=== PATIENT | female | born 1945 | race Caucasian/White ===

== ENCOUNTER → 2022-01-26 13:49 | Outpatient (CLI) | payer MEDICARE, SELFPAY ==
--- NOTE | ~2022-01-26 | MR_ITS ---
EXAMINATION: MR brain/brain stem wo/w con DATE: 01/26/2022 14:44 INDICATION: Memory loss. TECHNIQUE: Magnetic resonance imaging (MRI) of the brain and brainstem was performed without and with 12 mL MultiHance intravenous contrast. COMPARISON: Brain MRI 08/08/2009 FINDINGS: There is an old lacunar infarct in the right basal ganglia and adjacent white matter. There are scattered areas of nonspecific increased T2-weighted signal intensity in the cerebral white nesha er, bilateral basal ganglia, and henny. There is no intracranial hemorrhage, acute infarction, or abno rmal intracranial mass lesion. The ventricles are normal in size. The orbits are normal. There is mil d mucosal thickening in the ethmoid sinuses. The mastoid air cells are normal. IMPRESSION: 1. Old lacunar infarct in the right basal ganglia and adjacent white matter. 2. Mild nonspecific cerebral white matter disease and disease of the bilateral basal ganglia and henny , which likely represents chronic small vessel ischemic disease. Reviewed, dictated and finalized at location A. IMPRESSION: 1. Old lacunar infarct in the right basal ganglia and adjacent white matter. 2. Mild nonspecific cerebral white matter disease and disease of the bilateral basal ganglia and henny, which likely represents chronic small vessel ischemic d isease.
== END ==
PROVIDERS: PCP Physician Assistant; Visit Provider Physician Assistant
DX: R41.3 Other amnesia (principal); R93.0 Abnormal findings on diagnostic imaging of skull and head, not elsewhere classified
CPT/HCPCS: 70553; A9577

== ENCOUNTER 2022-10-30 23:03 | Outpatient (NON) | payer MEDICARE, SELFPAY | END 2022-10-30 23:04 | disposition home or self-care (01) | PROVIDERS: PCP Family Medicine; Visit Provider Family Medicine | DX: N39.0 Urinary tract infection, site not specified (principal) | CPT/HCPCS: 87086; 87088 ==

== ENCOUNTER 2022-11-19 01:46 | Day surgery (SDC) | payer MEDICARE, SELFPAY ==
[2022-11-09 13:08] VITALS: BMI 24.0
[2022-11-19 11:41] VITALS: BP 120/77; PULSE 106; RESP 18; TEMP 36.4; O2SAT 100
[2022-11-19] MEDS: LACTATED RINGERS 1,000 ML 150 ML IV CONT (11:50)
--- NOTE | 2022-11-19 12:46 | PM.HPGS ---
History of Present Illness History of Present Illness Consent: Risks, benefits, and alternatives have been discussed and questions answered. Patient agrees to proceed with procedure. Chief complaint: GERD, Abnormal Weightloss Narrative: Chelsea Martinez is a 77 year old female referred for investigation of persistent dyspepsia. She has almost constant discomfort in her stomach as though she is hungry. In fact she feels better after she eats. She denies heartburn dysphagia although she 1st her symptoms as acid reflux. She is taking dexlansoprazole 60 mg every day. Review of Systems Review of Systems: All systems reviewed & are unremarkable except as noted in HPI and below PMFSH Past Medical History Medical History Mild Alzheimer's dementia (~05/04/22) Surgical History Surgical History H/O: section (~1977) History of knee replacement (~04/2015) History of repair of rotator cuff (~2004) Family History Family History Father Family history of hypercholesterolemia Hypertension Asthma Family history of cardiovascular disease Cerebrovascular accident Mother Hypertension Family history of Alzheimer's disease Grandparent Family history of malignant neoplasm of breast Social History Social History Smoking status: Former smoker Tobacco type: cigarettes Alcohol intake: current Substance use: never Substance use type: does not use Lack of Transportation: No Lack of Food: Never True Current Housing: I Have Housing Concerned About Future Housing: No Difficulty Paying Gas/Electric Bills: No Difficulty Paying for Meds: No Currently Unemployed: No Education: Associate Degree Difficulty w/ Childcare or Family Care: No Living arrangements: alone Occupation/Education: retired Gender identity (if verbalized by the patient): Female Sexual Orientation (if Verbalized by the Patient): Straight or Heterosexual Spiritual care concerns: No Meds Home Medications and Allergies Home Medications Medication Instructions Recorded Confirmed Type lisinopril 10 mg tablet 5 mg PO DAILY #90 tabs 02/12/22 11/13/22 Rx memantine 5 mg tablet 5 mg PO QAM #90 tabs 06/04/22 11/13/22 Rx dexlansoprazole 60 mg 60 mg PO DAILY #90 caps 08/23/22 11/13/22 Rx capsule,biphase delayed release (Dexilant) amlodipine 5 mg tablet 5 mg PO DAILY #90 tabs 10/18/22 11/13/22 Rx levothyroxine 75 mcg tablet 75 mcg PO DAILY #90 tabs 10/18/22 11/13/22 Rx atorvastatin 40 mg tablet 40 mg PO DAILY #90 tabs 10/19/22 11/13/22 Rx nitrofurantoin macrocrystal 100 mg 100 mg PO Q12H #10 caps 10/30/22 10/30/22 Rx capsule clopidogrel 75 mg tablet 75 mg PO DAILY #90 tabs 11/05/22 11/13/22 Rx Allergies Allergy/AdvReac Type Severity Reaction Status Date / Time Penicillins Allergy Mild Rash Verified 11/19/22 11:40 Sulfa (Sulfonamide Allergy Unknown Skin Verified 11/19/22 11:40 Antibiotics) Reaction Vital Signs Vital Signs - 24 hr 11/19/22 11:41 Temperature 36.4 C Pulse Rate 106 H Respiratory Rate 18 Blood Pressure 120/77 Pulse Oximetry 100 Oxygen Delivery Room Air Exam Const: General: alert Orientation/consciousness: patient oriented x3 Resp: Auscultation: clear to auscultation bilaterally Cardio: Rhythm: regular rhythm GI: GI Palp: Yes Soft to palpation and No Tenderness to palpation present (GI) Neuro: General: patient oriented x3 Assessment and Plan Assessment and plan (1) Epigastric pain: Code(s): R10.13 - Epigastric pain Status: Acute Assessment and Plan: EGD with possible biopsy or dilatation or cautery.
--- NOTE | 2022-11-19 13:04 | WPDANESEPPF ---
Anes - Initial Pre Proc Eval Procedure: Operation Date: 11/19/22 13:00 Proposed Procedures p Esophagogastroduodenoscopy - Steve Diaz MD Date/Time: 11/19/22 13:04 Surgeon: Steve Diaz MD Pre Op Diagnosis: GERD, Abnormal Weightloss Patient Data Age: 77 Gender: F Height: 1.63 m Weight: 62.6 kg Last Vital Signs Temp 36.4 C 11/19/22 11:41 Pulse 106 H 11/19/22 11:41 Resp 18 11/19/22 11:41 BP 120/77 11/19/22 11:41 Pulse Ox 100 11/19/22 11:41 O2 Del Method Room Air 11/19/22 11:41 Allergies Allergy/AdvReac Type Severity Reaction Status Date / Time Penicillins Allergy Mild Rash Verified 11/19/22 11:40 Sulfa (Sulfonamide Allergy Unknown Skin Verified 11/19/22 11:40 Antibiotics) Reaction Home Medications Medication Instructions Recorded Confirmed Type lisinopril 10 mg tablet 5 mg PO DAILY #90 tabs 02/12/22 11/13/22 Rx memantine 5 mg tablet 5 mg PO QAM #90 tabs 06/04/22 11/13/22 Rx dexlansoprazole 60 mg 60 mg PO DAILY #90 caps 08/23/22 11/13/22 Rx capsule,biphase delayed release (Dexilant) amlodipine 5 mg tablet 5 mg PO DAILY #90 tabs 10/18/22 11/13/22 Rx levothyroxine 75 mcg tablet 75 mcg PO DAILY #90 tabs 10/18/22 11/13/22 Rx atorvastatin 40 mg tablet 40 mg PO DAILY #90 tabs 10/19/22 11/13/22 Rx nitrofurantoin macrocrystal 100 mg 100 mg PO Q12H #10 caps 10/30/22 10/30/22 Rx capsule clopidogrel 75 mg tablet 75 mg PO DAILY #90 tabs 11/05/22 11/13/22 Rx Patient hx anesthesia problems: none Family hx anesthesia problems: none Results Review: All pre-operative results and documents have been reviewed as part of the pre-operative evaluation. [facility] Past Medical History Medical History Mild Alzheimer's dementia (~05/04/22) Surgical History Surgical History H/O: section (~1977) History of knee replacement (~04/2015) History of repair of rotator cuff (~2004) Family History Family History Father Family history of hypercholesterolemia Hypertension Asthma Family history of cardiovascular disease Cerebrovascular accident Mother Hypertension Family history of Alzheimer's disease Grandparent Family history of malignant neoplasm of breast Social History Social History Smoking status: Former smoker Tobacco type: cigarettes Alcohol intake: current Substance use: never Substance use type: does not use Lack of Transportation: No Lack of Food: Never True Current Housing: I Have Housing Concerned About Future Housing: No Difficulty Paying Gas/Electric Bills: No Difficulty Paying for Meds: No Currently Unemployed: No Education: Associate Degree Difficulty w/ Childcare or Family Care: No Living arrangements: alone Occupation/Education: retired Gender identity (if verbalized by the patient): Female Sexual Orientation (if Verbalized by the Patient): Straight or Heterosexual Spiritual care concerns: No Anes - Eval Final PreProcedure Day of Procedure 11/19/22 13:04 Patient weight: normal Lungs: clear to auscultation Airway: Mallampati scale class II Neurological: other (alert) Last oral intake: >/= 8 hours ASA classification: IV Emergent: no Anesthetic plan: proceed Anesthesia type and monitoring: general GIVS and standard monitoring Results Review: All pre-operative results and documents have been reviewed as part of the pre-operative evaluation. Informed Consent: The patient's anesthetic plan and its attendant risks and benefits were discussed with the patient/family/POA. Questions were solicited and answers provided to the satisfaction of the patient/family/POA.
[2022-11-19 13:35] VITALS: BP 100/53; PULSE 67; RESP 20; O2SAT 100
[2022-11-19 13:45] VITALS: BP 98/59; PULSE 62; RESP 20; O2SAT 100
[2022-11-19 13:55] VITALS: BP 141/75; PULSE 58; RESP 20; O2SAT 100
== END 2022-11-19 14:10 | disposition home or self-care (01) ==
PROVIDERS: PCP Family Medicine; Visit Provider Internal Medicine Gastroenterology
PROC: 0DJ08ZZ Inspection of Upper Intestinal Tract, Via Natural or Artificial Opening Endoscopic (ICD-10-PCS; CPT 43235; principal; 2022-11-19 13:00)
DX: K21.9 Gastro-esophageal reflux disease without esophagitis (principal); G30.9 Alzheimer's disease, unspecified; F02.A0 Dementia in other diseases classified elsewhere, mild, without behavioral disturbance, psychotic disturbance, mood disturbance, and anxiety; Z79.02 Long term (current) use of antithrombotics/antiplatelets; Z87.891 Personal history of nicotine dependence
CPT/HCPCS: 43239; 87081; 88305; J2704; J7120

== ENCOUNTER 2023-12-05 07:09 | Outpatient (RCR) | payer MEDICARE, SELFPAY ==
--- NOTE | 2023-12-05 08:11 | PTOPEVAL1 ---
Assessment and note entered by Star Navas Evaluation Information Assessment Status Evaluation Diagnosis unsteadiness, left knee pain ICD-10 Condition Codes (PT) Pain in low back M54.50 Onset 12/04/22 Subjective Information Pt. reports that in the past year she has began to notice less control regarding her mobility. She reports that she has been dealing with on/off back pain in the past several months. She states that she has fallen twice in the past year. She denies any knee pain at this time. She reports that she is inactive for the most part and sits most of the day. She states that she lives alone, and still does light house cleaning. She reports that she no longer drives, and family helps with getting her into the community. She can stand for about 10-15 minutes before she has to sit due to back pain. she describes most of her back pain on the left side. She states that she has had no recent x-ray or MRI. She states she has no problem with sleeping at night. She states that she has been starting to use a cane in the past month due to her increasing pain. She reports that her goal is to decrease her low back and left buttock pain. Reported Pain Level Pain Score 5: Self Report Assessment PT Clinical Summary Pt. is a 78 year old female who enters the clinic with developed unsteadiness, l.e. pain and back pain. she presents with impaired gait, impaired l .e. strength, back pain, impaired balance with high fall risk, and functional decline. Continued skilled PT is indicated in order to improve these areas to assist with improved safety and efficiency with IADL's. Plan of Care Interventions Electrical Stimulation,Gait Training,Hot Pack/Cold Pack,Manual Therapy,Neuro Re-education,Patient/ Caregiver Educati,Therapeutic Activities, Therapeutic Exercise PT Services Indicated Yes Treatment Frequency and 2x/week x 10 visits Duration These treatments will address the objective and functional deficits as defined above. The patient will be advanced safely and appropriately in order for the patient to progress towards his/her prior level of function. Additional exercises will be introduced and as well as a comprehensive home exercise program upon discharge, if needed, ?to ensure carryover of functional gains achieved in the clinic. This treatment plan has been reviewed and agreement upon by the patient.
--- NOTE | 2023-12-05 08:20 | OPREHPOC ---
Outpatient Therapy Plan of Care This is a Multidisciplinary Plan of Care that may contain components documented by all disciplines (PT, OT, and ST.) PT Problem 1 PT Problem #1 Knowledge Deficit PT Goal 1 Goal / Goal Update Pt. will be independent with a HEP focused on flexibility, core stability and trunk mobility. Target Visit 2 PT Problem 2 PT Problem #2 Pain PT Goal 1 Goal / Goal Update Pt. will report pain levels at 2/10 at worst with prolonged standing activities of 30 minutes or greater. Target Visit 10 PT Problem 3 PT Problem #3 Impaired Balance PT Goal 1 Goal / Goal Update Pt. will improve her tinetti score to 24 or greater indicating lower fall risk. Target Visit 10 PT Problem 4 PT Problem #4 Impaired Gait PT Goal 1 Goal / Goal Update Pt. will demonstrate safe use of standard cane on right without verbal cues over level surface Pt. will complete the 6 minute walk test over a distance of 600' or greater with no episodes of toe drag on the left and 100% accuracy with right swing extremity passing the stance phase extremity . Target Visit 10 PT Problem 5 PT Problem #5 Impaired Functional Mobil PT Goal 1 Goal / Goal Update Pt. will present with less than 40% limitation on the LEFS indicating significant functional improvement. Target Visit 10
--- NOTE | 2023-12-25 12:52 | PCPTNOTE ---
Pt no showed visit today. Called and LM of next day and time.
--- NOTE | 2023-12-26 11:35 | PCPTNOTE ---
Mrs. Martinez's son called and stated that he would not be able to get his mother to her appointments and was going to contact her doctor regarding home health. She only attended the initial evaluation. Refer to the initial evaluation for discharge status. She will be discharged from our care at this time. Thank you for the referral of this patient. Star Navas, MPT
== END 2023-12-26 13:06 | disposition home or self-care (01) ==
LOC: ANHPT 07:09
PROVIDERS: PCP Family Medicine; Visit Provider Family Medicine
DX: M25.562 Pain in left knee (principal); R26.81 Unsteadiness on feet
CPT/HCPCS: 97110; 97162

== ENCOUNTER 2025-02-05 20:28 | Emergency (ER) | payer MEDICARE, SELFPAY ==
--- NOTE | ~2025-02-05 | CT_ITS ---
CT cervical spine wo con HISTORY: fall, hit head COMPARISON: None TECHNIQUE: Axial images of the cervical spine were obtained. Multiplanar reconstruction in the coronal, sagittal and axial reformats to evaluate for cervical fracture. FINDINGS: The images demonstrate no acute fracture or paravertebral soft tissue swelling. Multilevel degenerative changes with disc space narrowing and endplate sclerosis with uncovertebral hypertrophy and facet joint arthropathy. The visualized aspect of the upper lungs are clear. IMPRESSION: No acute fracture or subluxation. All CT scans at this facility are performed using low dose modulation techniques as appropriate to perform exam including the following: automated exposure control; adjustment of the mA and/or kV according to patient size (this includes techniques or standardized protocols for targeted exams where does is matched to indication/reason for exam; i.e. extremities or head); use of iterative reconstruction technique). Reviewed, dictated and finalized at location S. IMPRESSION: No acute fracture or subluxation. All CT scans at this facility are performed using low dose modulation techniqu es as appropriate to perform exam including the following: automated exposure c ontrol; adjustment of the mA and/or kV according to patient size (this includes techniques or standardized protocols for targeted exams where does is matched to indication/reason for exam; i.e. extremities or head); use of iterative jen nstruction technique).
--- NOTE | ~2025-02-05 | XR_ITS ---
XR chest 1V portable INDICATION:fall . REFERENCE: None FINDINGS: A single AP of the chest demonstrates normal heart size. The lungs are clear. There is no evidence of pneumothorax or pleural effusion. IMPRESSION: No acute pulmonary findings. Reviewed, dictated and finalized at location S.
--- NOTE | ~2025-02-05 | CT_ITS ---
CT brain wo con HISTORY:fall, hit lt side of forehead, on thinners COMPARISON: None. TECHNIQUE: Axial images were obtained of the head without intravenous contrast. FINDINGS: No acute intracranial hemorrhage, mass effect or midline shift. No extra-axial fluid collections. There is generalized atrophy and chronic white matter microangiopathic changes in the periventricular white matter. There are chronic lacunar infarct within the basal ganglia.Visualized paranasal sinuses and mastoid air cells are clear. IMPRESSION: No acute intracranial hemorrhage or extra axial fluid collections. All CT scans at this facility are performed using low dose modulation techniques as appropriate to perform exam including the following: automated exposure control; use of iterative reconstruction technique; adjustment of the mA and/or kV according to patient size (this includes techniques or standardized protocols for targeted exams where dose is matched to indication/reason for exam). Reviewed, dictated and finalized at location S. IMPRESSION: No acute intracranial hemorrhage or extra axial fluid collections. All CT scans at this facility are performed using low dose modulation techniqu es as appropriate to perform exam including the following: automated exposure c ontrol; use of iterative reconstruction technique; adjustment of the mA and/or kV according to patient size (this includes techniques or standardized protocol s for targeted exams where dose is matched to indication/reason for exam).
[2025-02-05 20:35] VITALS: BP 142/72; PULSE 84; RESP 18; TEMP 36.6; O2SAT 97
--- NOTE | 2025-02-05 20:52 | ECG_ITS ---
Test Date: 2025-02-05 21:33:47 Measurements Intervals [place] Rate: 77 P: -1 [place]: 104 QRS: -6 QRSD: 82 T: 60 QT: 381 QTc: 432 Interpretive Statements SINUS RHYTHM WITH SHORT [place] INTERVAL BASELINE ARTIFACT- I, III, AVR, AVL, AVF, V4 BORDERLINE ECG No previous ECG available for comparison Electronically Signed On 02-06-2025 08:10:46 CDT by Johnny Townsend D.O.
--- NOTE | 2025-02-05 20:56 | ED.FALL ---
HPI - Fall General Chief Complaint: Fall Stated Complaint: glf, on thinners, head injury Time Seen by Provider: 02/05/25 20:42 History of Present Illness HPI Narrative: This is a 79-year-old female with history of dementia, hypertension, hypothyroidism who presents to the ED for a fall and facial laceration. Patient states that she tripped and her dining room struck the left side of her face onto a code rack causing a laceration to the left side of her face. Denies loss conscious. She is on Plavix. She was able to ambulate after the fact. She states that she looked in the mirror and saw that was bleeding a lot prompting her to notify EMS. She states that her last Tdap was within the last 5 years. Related Data Allergies Allergy/AdvReac Type Severity Reaction Status Date / Time Penicillins Allergy Mild Rash Verified 02/05/25 20:35 Sulfa (Sulfonamide Allergy Unknown Skin Verified 02/05/25 20:35 Antibiotics) Reaction Review of Systems Review of Systems: Gen.: Denies fevers or chills Eyes: Denies eye pain or visual change ENT: Denies congestion Respiratory: Denies shortness of breath or cough CV: Denies chest pain or palpitations GI: Denies abdominal pain nausea, emesis or diarrhea denies burning, urgency, frequency or hematuria Musculoskeletal: Denies back pain or muscle pain Neuro: Denies numbness, tingling, weakness or focal weakness Skin: Denies rash Except as documented, all other systems reviewed and negative PMFSH Past Medical History Medical History Mild Alzheimer's dementia (~05/04/22) Surgical History Surgical History H/O: section (~1977) History of repair of rotator cuff (~2004) History of knee replacement (~04/2015) Family History Family History Father Family history of hypercholesterolemia Hypertension Asthma Family history of cardiovascular disease Cerebrovascular accident Mother Hypertension Family history of Alzheimer's disease Grandparent Family history of malignant neoplasm of breast Social History Social History Smoking status: Former smoker Tobacco type: cigarettes Alcohol intake: current Drinks per week: 3 Alcohol use details: wine occasionally Substance use: never Substance use type: does not use Do You Feel Safe in your Home?: Yes Lack of Transportation: No Lack of Food: Never True Current Housing: I Have Housing Concerned About Future Housing: No Difficulty Paying Gas/Electric Bills: No Difficulty Paying for Meds: No Currently Unemployed: No Education: Associate Degree Difficulty w/ Childcare or Family Care: No Living arrangements: alone Occupation/Education: retired Gender identity (if verbalized by the patient): Female Sexual Orientation (if Verbalized by the Patient): Straight or Heterosexual Spiritual care concerns: No Exam Narrative: APPEARANCE: No acute distress, nontoxic, resting in bed EYES: EOMI HEENT: Normocephalic, OMM. 2 cm laceration to the left face over the voodoo, bleeding controlled RESPIRATORY: No respiratory distress Clear to auscultation bilaterally with no rhonchi wheezing or rales. CARDIOVASCULAR: Regular rate and rhythm without murmurs rubs or gallops. ABDOMINAL: Soft, nontender, nondistended, no rebound or guarding MUSCULOSKELETAl: Moves all extremities. No clubbing, cyanosis or edema. NEURO: Awake and alert. Following commands, speech normal, no focal deficits SKIN:: Warm, dry. No rashes lesions or abrasions PSYCHIATRIC: Normal affect/mood, Course Vital Signs Vital signs: Vital Signs Temperature 97.9 F 02/05/25 20:35 Pulse Rate 84 02/05/25 20:35 Respiratory Rate 18 02/05/25 20:35 Blood Pressure 142/72 H 02/05/25 20:35 Pulse Oximetry 97 02/05/25 20:35 Oxygen Delivery Room Air 02/05/25 20:35 Temperature 97.9 F 02/05/25 20:35 Pulse Rate 84 02/05/25 20:35 Respiratory Rate 18 02/05/25 20:35 Blood Pressure 142/72 H 02/05/25 20:35 Pulse Oximetry 97 02/05/25 20:35 Oxygen Delivery Room Air 02/05/25 20:35 MDM - Fall MDM Narrative Medical decision making narrative: 79-year-old female presenting for fall with laceration. On initial evaluation, patient was in no acute distress afebrile, hemodynamically stable. She had no focal deficits. There was a 2 cm laceration to her left forehead superior to the lateral brow. CT head and C-spine showed no acute process. CBC and CMP were without significant abnormalities. Laceration was repaired as above, patient tolerated procedure well. She was advised to follow-up with her PCP in the next week for re-evaluation and suture removal. Patient was agreeable to this plan. Given strict return precautions. Differential Diagnosis Differential diagnosis: Likely other (Intracranial hemorrhage, laceration, hematoma, contusion, fracture) Medical Records Attestation: I reviewed the patient's medical records. Lab Data Attestation: I reviewed the patient's lab results. 02/05/25 21:37 02/05/25 21:37 Labs: Lab Results 02/05/25 Range/Units 21:37 WBC 8.5 (4.5-10.0) K/mm3 RBC 4.16 L (4.2-5.4) M/mm3 Hgb 12.4 (12.0-15.0) g/dL Hct 37.8 (37.0-47.0) % MCV 90.9 (80-100) fl MCH 29.8 (26-34) pg MCHC 32.8 (32-36) g/dl RDW 12.9 (11.5-14.5) % Plt Count 226 (150-375) k/mm3 MPV 8.7 (7.4-10.4) fl Immature Gran % (Auto) 0.2 (0-0.5) % Neut % (Auto) 78.2 H (45.5-73.1) % Lymph % (Auto) 12.5 L (18.3-44.2) % Campbell % (Auto) 7.4 (2.6-8.5) % Eos % (Auto) 1.1 (0-4.4) % Baso % (Auto) 0.6 (0.2-1.2) % Lymph # (Auto) 1.06 (0.9-3.2) K/mm3 Campbell # (Auto) 0.6 (0.1-0.6) K/mm3 Eos # (Auto) 0.1 (0-0.3) K/mm3 Baso # (Auto) 0.1 (0.0-0.1) K/mm3 Abs Immat Gran (auto) 0.02 (0.00-0.031) K/mm3 Absolute Neuts (auto) 6.6 (1.3-6.7) K/mm3 Absolute Nucleated RBC 0.000 (0.0-0.012) K/mm3 Nucleated RBC % 0.0 (0.0-0.2) % Sodium 135 L (137-145) mmol/L Potassium 4.0 (3.4-5.0) mmol/L Chloride 101 (98-107) mmol/L Carbon Dioxide 28 (22-30) mmol/L Anion Gap 6 (4-12) mmol/L BUN 14 (7-17) mg/dL Creatinine 0.66 L (0.7-1.0) mg/dL Estim Creat Clear Calc 52 ml/min Estimated GFR > 60 (59 - ) Glucose 109 (65-110) mg/dL Calcium 9.6 (8.4-10.2) mg/dL Total Bilirubin 0.5 (0.2-1.3) mg/dL AST 25 (14-36) U/L ALT 15 (6-35) U/L Alkaline Phosphatase 86 (38-126) U/L Total Protein 6.6 (6.3-8.2) g/dL Albumin 4.2 (3.5-5.1) g/dL Imaging Data Attestation: I personally reviewed and interpreted this imaging study as follows: Radiologist's impression: Impressions Head CT 02/05/25 21:16 IMPRESSION: No acute intracranial hemorrhage or extra axial fluid collections. All CT scans at this facility are performed using low dose modulation techniques as appropriate to perform exam including the following: automated exposure control; use of iterative reconstruction technique; adjustment of the mA and/or kV according to patient size (this includes techniques or standardized protocols for targeted exams where dose is matched to indication/reason for exam). Cervical Spine CT 02/05/25 21:18 IMPRESSION: No acute fracture or subluxation. All CT scans at this facility are performed using low dose modulation techniques as appropriate to perform exam including the following: automated exposure control; adjustment of the mA and/or kV according to patient size (this includes techniques or standardized protocols for targeted exams where does is matched to indication/reason for exam; i.e. extremities or head); use of iterative reconstruction technique). Chest X-Ray 02/05/25 21:20 IMPRESSION: No acute pulmonary findings. ECG Data EKG #1: Attestation: I personally reviewed and interpreted this ECG as follows: ECG completion date: 02/05/25 ECG completion time: 21:33 Interpretation: Normal sinus rhythm rate of 77, normal axis, normal intervals, no acute ST or T-wave changes Discharge Plan Discharge Clinical Impression: Fall, Laceration of face Patient Disposition: Home Condition: Stable Instructions: Antibiotic Form, Laceration (ED) Additional Instructions: Sutures can be removed in the next 5-7 days, follow-up with your PCP or with any urgent care or emergency department for removal. Return to the ED for any new or worsening symptoms. Apply ice to the area 15 minutes on 15 minutes off for swelling and bruising. Patient Language: Com[place]an Prescriptions: No Action citalopram 20 mg tablet 20 mg PO DAILY Qty: 90 3RF lisinopril 5 mg tablet 5 mg PO DAILY Qty: 90 3RF memantine 5 mg tablet 10 mg PO BID Qty: 360 1RF clopidogrel 75 mg tablet 75 mg PO DAILY Qty: 90 0RF amlodipine 5 mg tablet 5 mg PO DAILY Qty: 90 1RF atorvastatin 40 mg tablet 40 mg PO DAILY Qty: 90 1RF levothyroxine 75 mcg tablet See Rx Instructions .ROUTE .COMPLEX Qty: 90 1RF Dose Instruction: TAKE 1 TABLET BY MOUTH DAILY Rx Instructions: TAKE 1 TABLET BY MOUTH DAILY Follow-up/Referrals: Lissa Banuelos APRN [Primary Care Provider, Internal Medicine]
[2025-02-05 21:49] LABS: Hematocrit 37.8 % (37.0-47.0); Hemoglobin 12.4 g/dL (12.0-15.0); Immature Granulocyte Percent A 0.2 % (0-0.5); Lymphocytes Absolute Auto 1.06 K/mm3 (0.9-3.2); Mean Corpuscular HGB Conc 32.8 g/dl (32-36); Mean Corpuscular Hemoglobin 29.8 pg (26-34); Mean Corpuscular Volume 90.9 fl (80-100); Nucleated Red Blood Cells Absolute Auto 0.000 K/mm3 (0.0-0.012); Nucleated Red Blood Cells Perc 0.0 % (0.0-0.2); Platelet Count Result 226 k/mm3 (150-375); Red Blood Count 4.16 M/mm3 (4.2-5.4); White Blood Count 8.5 K/mm3 (4.5-10.0)
[2025-02-05 21:57] LABS: Alanine Aminotransferase 15 U/L (6-35); Albumin Level 4.2 g/dL (3.5-5.1); Alkaline Phosphatase 86 U/L (38-126); Anion Gap 6 mmol/L (4-12); Aspartate Amino Transferase 25 U/L (14-36); Bilirubin,Total 0.5 mg/dL (0.2-1.3); Blood Urea Nitrogen 14 mg/dL (7-17); Calcium 9.6 mg/dL (8.4-10.2); Carbon Dioxide 28 mmol/L (22-30); Chloride 101 mmol/L (98-107); Estimated CRCL calculation 52 ml/min; Estimated Glomerular Filt Rate > 60; Glucose 109 mg/dL (65-110); Potassium 4.0 mmol/L (3.4-5.0); Sodium 135 mmol/L (137-145); Total Protein 6.6 g/dL (6.3-8.2)
== END 2025-02-05 23:45 ==
PROVIDERS: Emergency Provider Student in an Organized Health Care Education/Training Program; PCP Nurse Practitioner
DX: S01.81XA Laceration without foreign body of other part of head, initial encounter (principal); G30.9 Alzheimer's disease, unspecified; F02.A0 Dementia in other diseases classified elsewhere, mild, without behavioral disturbance, psychotic disturbance, mood disturbance, and anxiety; I10 Essential (primary) hypertension; E03.9 Hypothyroidism, unspecified; Z96.659 Presence of unspecified artificial knee joint; Z87.891 Personal history of nicotine dependence; R94.31 Abnormal electrocardiogram [ECG] [EKG]; Z79.02 Long term (current) use of antithrombotics/antiplatelets; W01.198A Fall on same level from slipping, tripping and stumbling with subsequent striking against other object, initial encounter
CPT/HCPCS: 36415; 70450; 71045; 72125; 80053; 85025; 93005; 99284